=== PATIENT | female | born 1970 | race Caucasian/White ===

== ENCOUNTER → 2019-04-06 11:17 | Outpatient (CLI) | payer BC, SELFPAY ==
--- NOTE | 2019-04-06 | DI.MG.S_ITS ---
BILATERAL DIGITAL SCREENING MAMMOGRAM 3D/2D WITH CAD: 04/06/2019 CLINICAL: Routine screening. Comparison is made to exam dated: 02/14/2014 mammogram - [facility]. There are scattered fibroglandular elements in both breasts. Current study was also evaluated with a Computer Aided Detection (CAD) system. There are benign calcifications in both breasts. No significant masses, calcifications, or other findings are seen in either breast. There has been no significant interval change. IMPRESSION: There is no mammographic evidence of malignancy. A 1 year screening mammogram is recommended. This exam was interpreted at Station ID: [id number]. NOTE: For mammograms, a report in lay terms will be sent to the patient. Approximately 15% of breast malignancies will not be visualized mammographically. In the management of a palpable breast mass, a negative mammogram must not discourage biopsy of a clinically suspicious lesion. Electronically Signed By: Steve kinney/[email or web address]:04/06/2019 13:12:08 letter sent: Normal Exam ACR BI-RADS Category 2: Benign Finding(s) 3342F
== END ==
PROVIDERS: PCP Acupuncturist; Referring Provider Acupuncturist; Visit Provider Acupuncturist
DX: Z12.31 Encounter for screening mammogram for malignant neoplasm of breast (principal)
CPT/HCPCS: 77063; 77067

== ENCOUNTER → 2020-03-06 17:42 | Outpatient (CLI) | payer BC, SELFPAY ==
--- NOTE | 2020-03-06 | DI.MRI.S_ITS ---
PROCEDURE: MR KNEE LT WO CON INDICATIONS: unspecified internal derangement of left knee TECHNIQUE: Noncontrast sagittal PD fast spin echo and T2 fast spin echo with fat saturation, sagittal 3-D FLASH with fat saturation; coronal T1 spin echo and PD fast spin echo with fat saturation, and axial PD fast spin echo with fat saturation through the knee. COMPARISON: None. FINDINGS: Image quality: Excellent. Menisci: The medial and lateral menisci demonstrate normal morphology and internal signal. The meniscal root ligaments appear intact. Cruciate ligaments: There is high-grade partial to full-thickness rupture of anterior cruciate ligament near its femoral insertion. Posterior cruciate ligament is intact. Medial structures: There is rupture of medial collateral ligament near its femoral insertion with extensive surrounding edema and soft tissue swelling. The posterior oblique ligament, semimembranosus tendon insertions, oblique popliteal ligament, and meniscocapsular junction appear intact. Visualized portions of the pes anserinus tendons appear normal. No abnormal bursal fluid. Lateral structures: The lateral collateral ligament, long and short heads of the biceps femoris tendon appear intact. There is suggestion of tendinosis and low-grade partial-thickness tear involving popliteus tendon extending to musculotendinous junction. The posterosuperior and anteroinferior popliteomeniscal fascicles appear intact. The arcuate and fabellofibular ligaments appear intact, on either side of the lateral inferior geniculate artery. Iliotibial band appears normal. Anterior structures: The quadriceps and patellar tendons appear intact. Patellar alignment is normal. No femoral trochlear dysplasia or ventral trochlear prominence. No edema in the infrapatellar fat pad. Bones and cartilage: No acute fracture or dislocation. Edema is seen involving base of tibial spine near ACL insertion. No other area of abnormal marrow signal. The cartilage of the medial and lateral femorotibial compartments, as well as the patellofemoral compartment, appears normal in thickness. Joint space: There is moderate amount of joint fluid. A tiny popliteal cyst is seen. No gross intra-articular loose body. Normal appearing synovial plicae are incidentally noted. IMPRESSION: 1. Finding is consistent with high-grade partial to full-thickness rupture involving proximal ACL near its femoral insertion. Questionable few intact fibers versus fibrotic changes are noted along the expected course of ACL. PCL is intact. 2. Full-thickness rupture of proximal MCL at its femoral insertion. 3. Suggestion of tendinosis and low-grade partial-thickness tear involving popliteus tendon extending to musculotendinous junction. 4. No evidence of focal meniscal tear. 5. Moderate amount of joint effusion and tiny popliteal cyst. No gross intra-articular loose body. 6. No fracture or dislocation. Nonspecific subcortical cystic changes involving base of tibial spine near ACL insertion. Dictated by: Kemar Valdes M.D. on 03/07/2020 at 9:17 Approved by: Kemar Valdes M.D. on 03/07/2020 at 9:21
== END ==
PROVIDERS: PCP Acupuncturist; Referring Provider Orthopaedic Surgery Adult Reconstructive Orthopaedic Surgery; Visit Provider Orthopaedic Surgery Adult Reconstructive Orthopaedic Surgery
DX: M23.92 Unspecified internal derangement of left knee (principal); S83.412A Sprain of medial collateral ligament of left knee, initial encounter; M25.462 Effusion, left knee
CPT/HCPCS: 73721

== ENCOUNTER → 2021-03-25 16:52 | Outpatient (CLI) | payer BC, SELFPAY ==
--- NOTE | 2021-03-25 16:54 | DI.MG.S_ITS ---
BILATERAL DIGITAL SCREENING MAMMOGRAM 3D/2D WITH CAD: 03/25/2021 CLINICAL: Routine screening. Family history of breast cancer. Comparison is made to exams dated: 04/06/2019 mammogram - [facility] and 02/14/2014 mammogram - [facility]. There are scattered fibroglandular elements in both breasts. Current study was also evaluated with a Computer Aided Detection (CAD) system. There are benign calcifications in both breasts. No significant masses, calcifications, or other findings are seen in either breast. There has been no significant interval change. IMPRESSION: BENIGN There is no mammographic evidence of malignancy. A 1 year screening mammogram is recommended. This exam was interpreted at Station ID: [id number]. NOTE: For mammograms, a report in lay terms will be sent to the patient. Approximately 15% of breast malignancies will not be visualized mammographically. In the management of a palpable breast mass, a negative mammogram must not discourage biopsy of a clinically suspicious lesion. Electronically Signed By: Tashi Duggan M.D., jr/gabriela:03/26/2021 09:26:22 letter sent: Normal Exam ACR BI-RADS Category 2: Benign Finding(s) 3342F
== END ==
PROVIDERS: PCP Acupuncturist; Referring Provider Acupuncturist; Visit Provider Acupuncturist
DX: Z12.31 Encounter for screening mammogram for malignant neoplasm of breast (principal); Z80.3 Family history of malignant neoplasm of breast
CPT/HCPCS: 77063; 77067

== ENCOUNTER → 2022-06-29 15:20 | Outpatient (CLI) | payer OTHER, SELFPAY ==
[2022-07-01 13:12] LABS: QuantiFERON Mitogen Value >10.00 IU/mL (.); QuantiFERON Nil Value 0.01 IU/mL (.); QuantiFERON TB Gold Plus Negative (Negative); QuantiFERON TB1 Ag Value 0.05 IU/mL (.); QuantiFERON TB2 Ag Value 0.03 IU/mL (.)
== END ==
PROVIDERS: PCP Acupuncturist; Referring Provider Dermatology; Visit Provider Dermatology
DX: L40.0 Psoriasis vulgaris (principal)
CPT/HCPCS: 36415; 86480

== ENCOUNTER 2024-02-05 13:26 | Emergency (ER) | payer OTHER, SELFPAY ==
[2024-02-05 13:32] VITALS: BP 113/57; PULSE 80; RESP 16; TEMP 36.9; O2SAT 98; BMI 26.6
--- NOTE | 2024-02-05 13:32 | DI.RAD.S_ITS ---
PROCEDURE: XR ANKLE RT MIN 3V INDICATIONS: missed step rolled right ankle, pain with weight bearing TECHNIQUE: 3 views of the ankle were acquired. COMPARISON: None. FINDINGS: Bones: No acute displaced fracture or dislocation. Soft tissues: No suspicious calcifications. IMPRESSION: No acute displaced fracture or dislocation. If there is high concern for further derangement, consider MRI evaluation. Dictated by: Tree Feliciano M.D. on 02/05/2024 at 12:57 Approved by: Tree Feliciano M.D. on 02/05/2024 at 12:58
--- NOTE | 2024-02-05 14:40 | ED_ITS ---
HPI - Extremity Injury (Lower) <Anat Waters PA-C - Last Filed: 02/05/24 15:51> General Chief Complaint: Extremity Injury, Lower Stated Complaint: Fall, ankle px, no blood thinners Time Seen by Provider: 02/05/24 14:21 Source: patient Mode of arrival: Ambulatory History of Present Illness HPI Narrative: 54-year-old female presents with right ankle pain. She was going down some steps, carrying a picture frame, when she missed the last step as she did not see or sense it, falling forward. She demonstrates a right ankle injury that appears to have plantar flexed and everted. She denied any sensation of sn apping nor did she hear a pop. She reports no numbness tingling or loss of sensation. She does have her own crutches and has been using them with some good relief. She did ice it, it happened about 1.5 hours prior to arrival here. She has no prior history of any ankle sprains, she is very active, denying any other injuries stating she ?knew had a fall? all other systems reviewed and are negative. Related Data Allergies Allergy/AdvReac Type Severity Reaction Status Date / Time Sulfa (Sulfonamide AdvReac Mild Verified 01/14/22 09:56 Antibiotics) Review of Systems <Anat Waters PA-C - Last Filed: 02/05/24 15:51> Review of Systems Narrative: All other systems reviewed and negative. Patient History <Anat Waters PA-C - Last Filed: 02/05/24 15:51> Social History Smoking Status: Never smoker Smoking Status: Never smoker Exam <Anat Waters PA-C - Last Filed: 02/05/24 15:51> Initial Vital Signs Initial Vital Signs: Vital Signs Temperature 98.4 F 02/05/24 13:32 Pulse Rate 80 02/05/24 13:32 Respiratory Rate 16 02/05/24 13:32 Blood Pressure 113/57 L 02/05/24 13:32 Pulse Oximetry 98 02/05/24 13:32 Oxygen Delivery Method Room Air 02/05/24 13:32 Const General: cooperative, healthy appearing, comfortable, well developed, well groomed and No acute distress [facility] Head: normal to inspection, normocephalic and atraumatic Face and sinus: normal facial exam and face symmetric Mouth: oral mucosae normal Eyes General: Yes appearance normal, both eyes and all related structures Neck Neck: normal visual inspection and full ROM Chest Chest: normal inspection of the chest Resp Effort & Inspection: normal respiratory effort Auscultation: clear to auscultation bilaterally Cardio Rate: regular rate Rhythm: regular rhythm Skin General: no rashes or lesions noted, elasticity normal, turgor normal, No ecchymosis and No erythema Extrem Right lower extremity: normal to inspection, ankle (Bilateral malleolar discomfort no guarding) Details: normal to inspection, tenderness and other (Normal DP PT pulses); no swelling, edema and no crepitus and foot Details: normal capillary refill, normal to inspection, toes with normal ROM, vascular exam Details: dorsalis pedis pulse present, posterior tibial pulse present and normal capillary refill; not cool and no cyanosis, tendon exam Details: active flexion normal and motor-sensory exam Details: two point discrimination normal; no edema and no abrasion; no cyanosis, no edema and joint enlargement noted <DO Hans Butler Last Filed: 02/06/24 09:25> Initial Vital Signs Initial Vital Signs: Vital Signs Temperature 98.4 F 02/05/24 13:32 Pulse Rate 80 02/05/24 13:32 Respiratory Rate 16 02/05/24 13:32 Blood Pressure 113/57 L 02/05/24 13:32 Pulse Oximetry 98 02/05/24 13:32 Oxygen Delivery Method Room Air 02/05/24 13:32 Course <Anat Waters PA-C - Last Filed: 02/05/24 15:51> Orders Ordered: ED Orders 02/05/24 13:32 XR ankle RT min 3V Stat Vital Signs Vital signs: Vital Signs - 8 hr 02/05/24 13:32 Temperature 98.4 F Pulse Rate 80 Respiratory Rate 16 Blood Pressure 113/57 L Pulse Oximetry 98 Oxygen Delivery Method Room Air <DO Hans Butler Last Filed: 02/06/24 09:25> Orders Ordered: ED Orders 02/05/24 13:32 XR ankle RT min 3V Stat Vital Signs Vital signs: Vital Signs - 8 hr 02/05/24 13:32 Temperature 98.4 F Pulse Rate 80 Respiratory Rate 16 Blood Pressure 113/57 L Pulse Oximetry 98 Oxygen Delivery Method Room Air MDM - Extremity Injury (Lower) <Anat Waters PA-C - Last Filed: 02/05/24 15:51> Imaging Data Extremity x-ray #1: My Impression: No acute bony abnormality seen. Radiologist's Impression: PROCEDURE: XR ANKLE RT MIN 3V INDICATIONS: missed step rolled right ankle, pain with weight bearing TECHNIQUE: 3 views of the ankle were acquired. COMPARISON: None. FINDINGS: Bones: No acute displaced fracture or dislocation. Soft tissues: No suspicious calcifications. IMPRESSION: No acute displaced fracture or dislocation. If there is high concern for further derangement, consider MRI evaluation. Dictated by: Tree Feliciano M.D. on 02/05/2024 at 12:57 Approved by: Tree Feliciano M.D. on 02/05/2024 at 12:58 [facility] Narrative Medical decision making narrative: She already has crutches, I have fitted her with a walking boot advising she can do nonweightbearing and advance as tolerated. Reassured that there is no fracture but ligamentous injuries can be quite painful I can take several weeks to feel normal again. The goal is to avoid re-injury or new injury. She will elevate, wear the splint at night during sleep, ice, ibuprofen or acetaminophen as needed for pain and of course follow up with your PCP if symptoms persist, sometimes physical therapy ankle strengthening program can be helpful. Red flag warning signs reviewed seek medical attention if she has any worrisome symptoms or new concerns. Discharge Plan Departure Patient Disposition: Home Clinical Impression: Ankle sprain and strain Instructions: DI for Ankle Sprain Activity Restrictions/Additional Instructions: Please wear the boot at all times, advance her weightbear as tolerated, the lange is to avoid re-injury for the next several months. Elevate, ice 10-15 minutes at a time several times per day, you may take acetaminophen or ibuprofen as needed for pain. I recommended she follow up with your PCP as sometimes physical therapy can be helpful for ankle strengthening program. Do not hesitate to return if you develop any worsening pain, or any new worrisome symptoms. Again the lange is to avoid re-injury. Referrals: Sydney Rubin ND [Primary Care Provider] - Stand Alone Forms: Patient Portal/API/Survey ED Sign-out <Christina Trotter DO - Last Filed: 02/06/24 09:25> Cosign ED Attending Cosignature Attestation: I was available for consultation.
== END 2024-02-05 15:10 | disposition home or self-care (01) ==
PROVIDERS: Emergency Provider Physician Assistant Medical; PCP Acupuncturist
DX: S93.401A Sprain of unspecified ligament of right ankle, initial encounter (principal); S96.911A Strain of unspecified muscle and tendon at ankle and foot level, right foot, initial encounter; W10.9XXA Fall (on) (from) unspecified stairs and steps, initial encounter; Y93.89 Activity, other specified
CPT/HCPCS: 73610; 99283

== ENCOUNTER → 2024-05-01 12:20 | Outpatient (CLI) | payer OTHER, SELFPAY ==
[2024-05-03 18:36] LABS: QuantiFERON Mitogen Value >10.00 IU/mL (.); QuantiFERON Nil Value 0.02 IU/mL (.); QuantiFERON TB Gold Plus Negative (Negative); QuantiFERON TB1 Ag Value 0.04 IU/mL (.); QuantiFERON TB2 Ag Value 0.04 IU/mL (.)
== END ==
PROVIDERS: PCP Acupuncturist; Referring Provider Dermatology; Visit Provider Dermatology
DX: L40.0 Psoriasis vulgaris (principal); Z79.899 Other long term (current) drug therapy; L40.59 Other psoriatic arthropathy
CPT/HCPCS: 36415; 86480

== ENCOUNTER → 2024-12-19 08:19 | Outpatient (CLI) | payer OTHER, SELFPAY ==
[2024-12-19 09:35] LABS: Add Manual Diff / Slide Review NO; Hematocrit 40.7 % (36-46); Hemoglobin 13.9 g/dL (12.0-16.0); Lymphocytes Absolute Auto 2300 /uL (1100-4500); Mean Corpuscular HGB Conc 34.2 % (30-36); Mean Corpuscular Hemoglobin 29.8 PG (26-34); Mean Corpuscular Volume 87.3 fL (80-100); Platelet Count 400 X10^3/uL (150-400)
[2024-12-19 09:53] LABS: Alanine Aminotransferase 46 IU/L (<35); Albumin 4.8 g/dL (3.5-5.0); Albumin Globulin Ratio 1.6 (1.0-2.8); Alkaline Phosphatase 76 U/L (38-126); Blood Urea Nitrogen 20 mg/dL (7-17); Calcium 10.5 mg/dL (8.4-10.2); Carbon Dioxide 25 mmol/L (22-32); Chloride 103 mmol/L (98-107); Cholesterol 251 mg/dL (140-199); Estimated Glomerular Filt Rate > 60 mL/min (>60); Globulin 3.0 g/dL (1.7-4.1); Glucose 90 mg/dL (70-99); HDL Cholesterol 79 mg/dL (40-60); HEMOLYSIS < 15 (0-50); Potassium 4.4 mmol/L (3.4-5.1); Sodium 140 mmol/L (137-145); Total Protein 7.8 g/dL (6.3-8.2); Triglycerides 86 mg/dL (35-150)
== END ==
DX: E78.00 Pure hypercholesterolemia, unspecified (principal); L30.8 Other specified dermatitis; Z76.89 Persons encountering health services in other specified circumstances; Z79.899 Other long term (current) drug therapy
CPT/HCPCS: 36415; 80053; 80061; 85025